=== PATIENT | female | born 1985 | race Caucasian/White ===

== ENCOUNTER 2019-08-13 03:18 | Emergency (ER) | payer OTHER ==
[2019-08-13 04:38] VITALS: TEMP 98.9; O2SAT 100
[2019-08-13 04:40] VITALS: BP 124/83
--- NOTE | 2019-08-13 04:41 | ER ---
Nurse's Notes [facility] Name: Angelica Virgen Age: 34 yrs Sex: Female : 1985 Arrival Date: 08/13/2019 Time: 03:26 Bed 5 Private MD: Diagnosis: Viral Upper Respiratory Infection Presentation: 08/13 03:20 Presenting complaint: Patient states: that she has had a cough, congestion and fever x fc 5 days. Was seen yesterday by the health clinic and told she has an ear infection on the left side but neg. flu and strep. They would not give her antibiotics because she is 6 weeks . States that now she is feeling worse, has headache and both ears ache. Did also call hot line to HV[employer] R TE[employer] and was told to take Zpak that she had at home even though it was . Transition of care: patient was not received from another setting of care. Onset of symptoms was August 09, 2019. Risk Assessment: Do you want to hurt yourself or someone else? Patient reports no desire to harm self or others. Initial Sepsis Screen: Does the patient meet any 2 criteria? HR > 90 bpm. Yes Does the patient have a suspected source of infection? No. Patient's initial sepsis screen is negative. Care prior to arrival: Medication(s) given: Albuterol inhaler and Tylenol at 2300. 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 - Social history:: Smoking status: unknown. - Ebola Screening: : Patient negative for fever greater than or equal to 101.5 degrees Fahrenheit, and additional compatible Ebola Virus Disease symptoms Patient denies exposure to infectious person Patient denies travel to an Ebola-affected area in the 21 days before illness onset. Screenin:20 Abuse screen: Denies threats or abuse. Nutritional screening: No deficits noted. Tuberculosis screening: No symptoms or risk factors identified. Fall Risk None identified. Assessment: 04:16 General: Appears in no apparent distress. uncomfortable, Behavior is calm, cooperative, jd3 appropriate for age. Pain: Complains of pain in head Quality of pain is described as aching. Neuro: Level of Consciousness is awake, alert, obeys commands, Oriented to person, place, time, situation. Cardiovascular: Denies chest pain, Capillary refill < 3 seconds Patient's skin is warm and dry. Respiratory: Reports cough that is persistent Airway is patent Respiratory effort is even, unlabored, Respiratory pattern is regular, symmetrical. GI: No signs and/or symptoms were reported involving the gastrointestinal system. : No signs and/or symptoms were reported regarding the genitourinary system. EENT: Reports nasal congestion pain in left ear and right ear sore throat. Derm: Skin is intact, Skin is dry, Skin is normal, Skin temperature is warm. Musculoskeletal: Circulation, motion, and sensation intact. Range of motion: intact in all extremities. 04:30 Reassessment: Patient appears in no apparent distress at this time. Patient and/or jd3 family updated on plan of care and expected duration. Pain level reassessed. Patient is alert, oriented x 3, equal unlabored respirations, skin warm/dry/pink. pt reported understanding of discharge instructions. even and steady gait upon discharge. Vital Signs: 03:20 BP 135 / 73; Pulse 130; Resp 20; Temp 98.9(O); Pulse Ox 100% on R/A; Weight 63.5 kg (R); Height 5 ft. 5 in. (165.10 cm) (R); Pain 8/10; 04:18 BP 124 / 83; Pulse 110; Resp 19 S; Pulse Ox 100% on R/A; jd3 03:20 Body Mass Index 23.30 (63.50 kg, 165.10 cm) ED Course: 03:20 Arm band placed on Patient placed in an exam room, on a stretcher. 03:20 Patient has correct armband on for positive identification. Bed in low position. Call light in reach. Pulse ox on. NIBP on. 03:20 No provider procedures requiring assistance completed. fc 03:26 Patient arrived in ED. es 03:36 Nelson Martins MD is Attending Physician. ps1 03:42 Redd Bashir RN is Primary Nurse. jd3 03:48 Triage completed. fc 04:29 Patient did not have IV access during this emergency room visit. jd3 Administered Medications: 04:06 Not Given (Physician Discretion): Motrin 600 mg PO once vc Outcome: 04:16 Discharge ordered by MD. ps1 04:29 Discharged to home ambulatory, with family. jd3 04:29 Condition: stable 04:29 Discharge instructions given to patient, family, Instructed on discharge instructions, follow up and referral plans. medication usage, Demonstrated understanding of instructions, follow-up care, medications, Prescriptions given X 2. 04:31 Patient left the ED. jd3 Signatures: Zoraida Mitchell Felicia RN RN Redd Bashir, AYDEE RN jd3 Nelson Martins MD MD ps1 Sarina Moran RN vc Corrections: (The following items were deleted from the chart) 04:31 04:16 Respiratory: Reports cough that is Airway is patent Respiratory effort is even, jd3 unlabored, Respiratory pattern is regular, symmetrical, jd3
--- NOTE | 2019-08-13 04:42 | EDPHYS ---
Physician Documentation [facility] Name: Angelica Virgen Age: 34 yrs Sex: Female : 1985 Arrival Date: 08/13/2019 Time: 03:26 Bed 5 Private MD: ED Physician Nelson Martins HPI: 08/13 04:07 This 34 yrs old Female presents to ER via Ambulatory with complaints of ps1 Congestion, Fever, Sore Throat, 5-6wks preg. 04:07 patient called hot line for viral syndrome and recent evaluation for left otitis. ps1 Previous doctor reportedly did not know what medication was safe in . Was told to take azithromycin that patient had left over and to see an OB. Patient took 500mg PO of azithromycin [employer]. She is congested and has ear pain. Post nasal drip and runny nose. Had strep and flu which were negative. . 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 - Social history:: Smoking status: unknown. - Ebola Screening: : Patient negative for fever greater than or equal to 101.5 degrees Fahrenheit, and additional compatible Ebola Virus Disease symptoms Patient denies exposure to infectious person Patient denies travel to an Ebola-affected area in the 21 days before illness onset. ROS: 04:07 Cardiovascular: Negative for chest pain, palpitations, and edema, Abdomen/GI: Negative ps1 for abdominal pain, nausea, vomiting, diarrhea, and constipation, MS/Extremity: Negative for injury and deformity, Skin: Negative for injury, rash, and discoloration, Neuro: Negative for headache, weakness, numbness, tingling, and seizure. 04:07 Constitutional: Positive for body aches, fatigue. 04:07 Eyes: Positive for itching. 04:07 ENT: Positive for ear pain, rhinorrhea, sinus congestion, sore throat. Exam: 04:07 Constitutional: This is a well developed, well nourished patient who is awake, alert, ps1 and in no acute distress. Head/Face: Normocephalic, atraumatic. Abdomen/GI: Soft, non-tender, with normal bowel sounds. No distension or tympany. No guarding or rebound. No evidence of tenderness throughout. Skin: Warm, dry with normal turgor. Normal color with no rashes, no lesions, and no evidence of cellulitis. MS/ Extremity: Pulses equal, no cyanosis. Neurovascular intact. Full, normal range of motion. Neuro: Awake and alert, GCS 15, oriented to person, place, time, and situation. Cranial nerves II-XII grossly intact. Sensory grossly intact. Psych: Awake, alert, with orientation to person, place and time. Behavior, mood, and affect are within normal limits. 04:07 ENT: External ear(s): are unremarkable, Ear canal(s): are normal, TM's: no acute changes, erythema, that is mild, on the left. 04:07 Cardiovascular: Rate: tachycardic, Rhythm: regular. 04:07 Respiratory: the patient does not display signs of respiratory distress, Respirations: normal, Breath sounds: are clear throughout. Vital Signs: 03:20 BP 135 / 73; Pulse 130; Resp 20; Temp 98.9(O); Pulse Ox 100% on R/A; Weight 63.5 kg fc (R); Height 5 ft. 5 in. (165.10 cm) (R); Pain 8/10; 04:18 BP 124 / 83; Pulse 110; Resp 19 S; Pulse Ox 100% on R/A; jd3 03:20 Body Mass Index 23.30 (63.50 kg, 165.10 cm) fc MDM: 04:16 Patient medically screened. ps1 04:22 Data reviewed: vital signs, nurses notes, and as a result, I will discharge patient. ps1 Counseling: I had a detailed discussion with the patient and/or guardian regarding: the historical points, exam findings, and any diagnostic results supporting the discharge/admit diagnosis, the need for outpatient follow up, an OB/Gyne specialist, to return to the emergency department if symptoms worsen or persist or if there are any questions or concerns that arise at home. Administered Medications: 04:06 Not Given (Physician Discretion): Motrin 600 mg PO once vc Disposition: 08/13/19 04:16 Discharged to Home. Impression: Viral Upper Respiratory Infection. - Condition is Stable. - Discharge Instructions: Upper Respiratory Infection, Adult. - Prescriptions for Zithromax Z- Az 250 mg Oral Tablet - take 1 tablet by ORAL route as directed for 5 days Day 1 - take two (2) tablets one time. Day 2, 3, 4 , 5 take one (1) tablet once daily.; 6 tablet. chlorpheniramine maleate 4 mg Oral Tablet - take 1 tablet by ORAL route every 6 hours As needed; 30 tablet. - Medication Reconciliation Form, Thank You Letter, Antibiotic Education, Prescription Opioid Use form. - Follow up: Emergency Department; When: As needed; Reason: Fever > 102 F, Worsening of condition. Follow up: Private Physician; When: 48 Hours; Reason: Further diagnostic work-up, Recheck today's complaints, Continuance of care. - Problem is new. - Symptoms are unchanged. Signatures: Dispatcher [employer] EDMS Shivani Araiza RN RN Redd Bashir RN RN jd3 Nelson Martins MD MD ps1 Sarina Moran RN vc Corrections: (The following items were deleted from the chart) 04:11 04:07 patient called [facility] hot line for viral syndrome and recent evaluation for left ps1 otitis. Previous doctor reportedly did not know what medication was safe in . Was told to take azithromycin that patient had left over and to see an OB. Patient took 500mg PO of azithromycin [employer]. She is congested and has ear pain. Post nasal drip and runny nose. . ps1 04:31 04:16 08/13/2019 04:16 Discharged to Home. Impression: Viral Upper Respiratory jd3 Infection. Condition is Stable. Forms are Medication Reconciliation Form, Thank You Letter, Antibiotic Education, Prescription Opioid Use. Follow up: Emergency Department; When: As needed; Reason: Fever > 102 F, Worsening of condition. Follow up: Private Physician; When: 48 Hours; Reason: Further diagnostic work-up, Recheck today's complaints, Continuance of care. Problem is new. Symptoms are unchanged. ps1
== END 2019-08-13 04:31 | disposition home or self-care (01) ==
LOC: ER 03:18
DX: O26.891 Other specified pregnancy related conditions, first trimester (principal); J06.9 Acute upper respiratory infection, unspecified; Z88.0 Allergy status to penicillin; J45.909 Unspecified asthma, uncomplicated; E03.9 Hypothyroidism, unspecified
CPT/HCPCS: 99283